=== PATIENT | male | born 1995 | race African-American/Black ===

== ENCOUNTER → 2019-02-15 | Outpatient (CLI) | payer BC ==
--- NOTE | 2019-02-15 10:24 | RADIOLOGY REPORT (SQ) ---
EXAM DESCRIPTION: SHOULDER RIGHT 2 OR MORE VIEWS COMPLETED DATE/TIME: 02/15/2019 10:14 am REASON FOR STUDY: RT ANTERIOR SHOULDER PAIN M25.511 PAIN IN RIGHT SHOULDER COMPARISON: None. NUMBER OF VIEWS: Three views. TECHNIQUE: Internal rotation, external rotation, and Y view images acquired of the right shoulder. LIMITATIONS: None. FINDINGS: MINERALIZATION: Normal. BONES: No acute fracture. No worrisome bone lesions. No significant osteophytes. GLENOHUMERAL JOINT: No significant findings. ACROMIOCLAVICULAR JOINT: No large osteophytes. SOFT TISSUES: No calcifications. VISUALIZED RIBS, SPINE, AND LUNG: No other significant finding. OTHER: No other significant finding. IMPRESSION: NEGATIVE STUDY OF THE RIGHT SHOULDER. NO EXPLANATION FOR PAIN. TECHNICAL DOCUMENTATION: JOB ID: [id number] [employer]- All Rights Reserved Reading location - IP/workstation name: [email or web address]
== END ==
LOC: OD 09:28
PROVIDERS: ATTEND Family Medicine
DX: M25.511 Pain in right shoulder (principal)

== ENCOUNTER → 2019-02-19 | Outpatient (CLI) | payer BC ==
--- NOTE | 2019-02-19 15:52 | RADIOLOGY REPORT (SQ) ---
EXAM DESCRIPTION: LUMBAR SPINE COMPLETE COMPLETED DATE/TIME: 02/19/2019 2:57 pm REASON FOR STUDY: LOW BACK PAIN M25.511 PAIN IN RIGHT SHOULDER COMPARISON: None. NUMBER OF VIEWS: Five views including obliques. TECHNIQUE: AP, lateral, oblique, and sacral radiographic images acquired of the lumbar spine. LIMITATIONS: None. FINDINGS: MINERALIZATION: Normal. SEGMENTATION: Normal. No transitional anatomy. ALIGNMENT: Normal. VERTEBRAE: Maintained height. No fracture or worrisome bone lesion. DISCS: Preserved height. No significant osteophytes or end plate irregularity. POSTERIOR ELEMENTS: Pedicles and facets are intact. No pars defect or posterior arch defects. HARDWARE: None in the spine. PARASPINAL SOFT TISSUES: Normal. PELVIS: Intact as visualized. No fractures or worrisome bone lesions. SI joints intact. OTHER: No other significant finding. IMPRESSION: NORMAL 5 VIEW LUMBAR SPINE. TECHNICAL DOCUMENTATION: JOB ID: [id number] [employer]- All Rights Reserved Reading location - IP/workstation name: [email or web address]
== END ==
LOC: OD 14:24
PROVIDERS: ATTEND Family Medicine
DX: M25.511 Pain in right shoulder (principal)
CPT/HCPCS: 72110

== ENCOUNTER 2019-11-21 10:38 | Emergency (ER) | payer BC, MEDICAID ==
--- NOTE | 2019-11-21 10:55 | ER Document Report ---
ED Medical Screen (RME) - General Chief Complaint: Chest Pain Stated Complaint: CHEST PAIN Time Seen by Provider: 11/21/19 10:46 Primary Care Provider: JOSE SZYMANSKI MD [Primary Care Provider] - Follow up as needed Mode of Arrival: Wheelchair Information source: Patient Notes: HPI; 34-year-old male no previous medical problems presents emergency room complaint of worsening intermittent chest pain for the past 2 weeks. Describes it as tightness in the substernal region. No medications or symptoms. No trauma or injury. No shortness of breath, no difficulty breathing. No recent travel. No COVID-19 exposure. PE: Alert and oriented x3. Mild stress noted. Lungs: Clear to auscultation without rales, rhonchi, wheezes. Heart: Regular rate and rhythm without murmurs, rubs, gallops. Chest wall nontender to palpation. Cardiac evaluation initiated I have greeted and performed a rapid initial assessment of this patient. A comprehensive ED assessment and evaluation of the patient, analysis of test results and completion of the medical decision making process will be conducted by additional ED providers. I have specifically instructed the patient or family members with the patient to immediately return to any nursing staff should anything change in the patient's condition or with their chief complaint. TRAVEL OUTSIDE OF THE [place] IN LAST 30 DAYS: No - Related Data Allergies/Adverse Reactions: No Known Allergies Allergy (Unverified 11/21/19 10:52) Physical Exam - Vital signs Vitals: Temp Pulse Resp BP Pulse Ox 98.5 F 64 14 130/87 H 97 11/21/19 10:48 11/21/19 10:48 11/21/19 10:48 11/21/19 10:48 11/21/19 10:48 Course - Vital Signs Vital signs: Temp Pulse Resp BP Pulse Ox 98.5 F 64 14 130/87 H 97 11/21/19 10:50 11/21/19 10:48 11/21/19 10:48 11/21/19 10:48 11/21/19 10:48 Doctor's Discharge - Discharge Referrals: JOSE SZYMANSKI MD [Primary Care Provider] - Follow up as needed
[2019-11-21 11:22] LABS: ABSOLUTE BASOPHILS # (AUTO) 0.1 10^3/uL (0.0-0.2); ABSOLUTE EOSINOPHILS # (AUTO) 0.1 10^3/uL (0.0-0.6); ABSOLUTE LYMPHOCYTES (AUTO) 2.1 10^3/uL (0.5-4.7); ABSOLUTE MONOCYTES (AUTO) 0.7 10^3/uL (0.1-1.4); ABSOLUTE NEUT (AUTO) 3.6 10^3/uL (1.7-8.2); BASOPHILS % (AUTO) 1.1 % (0-2); EOSINOPHILS % (AUTO) 1.4 % (0-6); HEMATOCRIT 42.1 % (37.9-51.0); HEMOGLOBIN 14.9 g/dL (13.5-17.0); LYMPHOCYTES % (AUTO) 31.9 % (13-45); MEAN CORPUSCULAR HEMOGLOBIN 32.5 pg (27.0-33.4); MEAN CORPUSCULAR HGB CONC 35.2 g/dL (32.0-36.0); MEAN CORPUSCULAR VOLUME 92 fl (80-97); MONOCYTES % (AUTO) 10.6 % (3-13); PLATELET COUNT 284 10^3/uL (150-450); RED BLOOD COUNT 4.57 10^6/uL (4.35-5.55); RED CELL DISTRIBUTION WIDTH 13.3 % (11.5-14.0); TOTAL CELLS COUNTED % (AUTO) 100 %; WHITE BLOOD COUNT 6.5 10^3/uL (4.0-10.5)
--- NOTE | 2019-11-21 11:31 | RADIOLOGY REPORT (SQ) ---
EXAM DESCRIPTION: CHEST SINGLE VIEW IMAGES COMPLETED DATE/TIME: 11/21/2019 11:15 am REASON FOR STUDY: chest pain COMPARISON: None. NUMBER OF VIEWS: One view. TECHNIQUE: Single frontal radiographic view of the chest acquired. LIMITATIONS: None. FINDINGS: LUNGS AND PLEURA: No opacities, masses or pneumothorax. No pleural effusion. MEDIASTINUM AND HILAR STRUCTURES: No masses. Contour normal. HEART AND VASCULAR STRUCTURES: Heart normal in size. Normal vasculature. BONES: No acute findings. HARDWARE: None in the chest. OTHER: No other significant finding. IMPRESSION: NO SIGNIFICANT RADIOGRAPHIC FINDING IN THE CHEST. TECHNICAL DOCUMENTATION: JOB ID: [id number] 2010 [employer]- All Rights Reserved Reading location - IP/workstation name: [email or web address]
[2019-11-21 11:42] LABS: ALBUMIN 4.4 g/dL (3.5-5.0); ALKALINE PHOSPHATASE 67 U/L (38-126); ANION GAP 8 (5-19); ASPARTATE AMINO TRANSFERASE 28 U/L (17-59); BILIRUBIN,TOTAL 0.6 mg/dL (0.2-1.3); BLOOD UREA NITROGEN 11 mg/dL (7-20); CALCIUM 9.5 mg/dL (8.4-10.2); CARBON DIOXIDE 24 mmol/L (22-30); CHLORIDE 106 mmol/L (98-107); CREATINE KINASE 297 U/L (55-170); GLUCOSE 89 mg/dL (75-110); POTASSIUM 4.5 mmol/L (3.6-5.0); TOTAL PROTEIN 7.9 g/dL (6.3-8.2)
[2019-11-21 11:56] LABS: TROPONIN I < 0.012 ng/mL
--- NOTE | 2019-11-21 17:52 | RADIOLOGY REPORT (SQ) ---
EXAM DESCRIPTION: CTA CHEST IMAGES COMPLETED DATE/TIME: 11/21/2019 5:42 pm REASON FOR STUDY: evaluate for PE COMPARISON: None. TECHNIQUE: CT scan of the chest performed using helical scanning technique with dynamic intravenous contrast injection. Images reviewed with lung, soft tissue and bone windows. Reconstructed coronal and sagittal MPR images reviewed. Additional 3 dimensional post-processing performed to develop Maximal Intensity Projection images (CA P). All images stored on PACS. All CT scanners at this facility use dose modulation, iterative reconstruction, and/or weight based d osing when appropriate to reduce radiation dose to as low as reasonably achievable (ALARA). [facility]: Dose Right [facility]: CareDose [facility]: Dose Right [facility]: Teradose 4D [facility]: IMN CONTRAST TYPE AND DOSE: contrast/concentration: Isovue 350.00 mg/ml; Total Contrast Delivered: 63.0 ml; Total Saline Delivered: 57.0 ml Contrast bolus adequate for pulmonary arteries and aorta. RENAL FUNCTION: BUN 11 creatinine 0.81 RADIATION DOSE: CT Rad equipment meets quality standard of care and radiation dose reduction techniq ues were employed. CTDIvol: 15.3 - 19.8 mGy. DLP: 537 mGy-cm. . LIMITATIONS: None. FINDINGS: LUNGS AND PLEURA: No masses, infiltrates, or pneumothorax. No pleural effusions or pleura l calcifications. AORTA AND GREAT VESSELS: No aneurysm. No dissection. HEART: No pericardial effusion. No significant coronary artery calcifications. PULMONARY ARTERIES: No emboli visualized in the main pulmonary arteries or the segmental branches. HILAR AND MEDIASTINAL STRUCTURES: No identified masses or abnormal nodes. HARDWARE: None in the chest. UPPER ABDOMEN: No significant findings. Limited exam. THYROID AND OTHER SOFT TISSUES: No masses. No adenopathy. BONES: No acute or significant finding. 3D MIPS: Confirm above findings. OTHER: No other significant finding. IMPRESSION: There is no pulmonary embolus. There is no aortic aneurysm or dissection. No acute fin dings in the thorax. COMMENT: Quality ID # [id number]: Final reports with documentation of one or more dose reduction techniques (e.g., Automated exposure control, adjustment of the mA and/or kV according to patient size, use of iterative reconstruction technique) TECHNICAL DOCUMENTATION: JOB ID: [id number] 2010 [employer]- All Rights Reserved Reading location - IP/workstation name: [email or web address]
[2019-11-21] MEDS ORDERED: KETOROLAC TROMETHAMINE INJ/PF 30 MG/1 ML SDV IV ONE (18:13)
[2019-11-21 19:10] VITALS: BP 146/92
--- NOTE | 2019-11-21 19:53 | ER Document Report ---
Entered by JOSE WREN SCRIBE 11/21/19 1313 Acting as scribe for:JESSICA GONZALEZ DO ED General - General Chief Complaint: Chest Pain Stated Complaint: CHEST PAIN Time Seen by Provider: 11/21/19 10:46 Primary Care Provider: JOSE SZYMANSKI MD [Primary Care Provider] - Follow up in 3-5 days Mode of Arrival: Wheelchair Information source: Patient Notes: This 24 year old male patient presents to the emergency department today with complaints of chest pain off and on for the last two weeks. Patient states his pain is exacerbated with deep breathing. Patient denies leg swelling, history of DVT/PE, cough, or fevers. 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 TRAVEL OUTSIDE OF THE [place] IN LAST 30 DAYS: No - Related Data Allergies/Adverse Reactions: No Known Allergies Allergy (Unverified 11/21/19 10:52) Past Medical History - General Information source: Patient - Social History Smoking Status: Current Some Day Smoker Cigarette use (# per day): Yes Frequency of alcohol use: None Drug Abuse: None Lives with: Family Family History: Reviewed & Not Pertinent Patient has homicidal ideation: No - Medical History Medical History: Negative Surgical Hx: Negative Review of Systems - Review of Systems Constitutional: denies: Fever EENT: No symptoms reported Cardiovascular: See HPI, Chest pain Respiratory: See HPI, Hurts to breathe. denies: Cough Gastrointestinal: No symptoms reported Genitourinary: No symptoms reported Male Genitourinary: No symptoms reported Musculoskeletal: denies: Leg swelling Skin: No symptoms reported Hematologic/Lymphatic: No symptoms reported Neurological/Psychological: No symptoms reported -: Yes All other systems reviewed and negative Physical Exam - Vital signs Vitals: Temp Pulse Resp BP Pulse Ox 98.5 F 64 14 130/87 H 97 11/21/19 10:48 11/21/19 10:48 11/21/19 10:48 11/21/19 10:48 11/21/19 10:48 Interpretation: Normal - General General appearance: Appears well, Alert - HEENT Head: Normocephalic, Atraumatic Eyes: Normal Pupils: PERRL - Respiratory Respiratory status: No respiratory distress Chest status: Tender Breath sounds: Normal Chest palpation: Normal - Cardiovascular Rhythm: Regular Heart sounds: Normal auscultation Murmur: No - Abdominal Inspection: Normal Distension: No distension Bowel sounds: Normal Tenderness: Nontender Organomegaly: No organomegaly - Back Back: Normal, Nontender - Extremities General upper extremity: Normal inspection, Nontender, Normal color, Normal ROM, Normal temperature General lower extremity: Normal inspection, Nontender, Normal color, Normal ROM, Normal temperature, Normal weight bearing. No: Geoff's sign - Neurological Neuro grossly intact: Yes Cognition: Normal Orientation: AAOx4 Rolla Coma Scale Eye Opening: Spontaneous Fransico Coma Scale Verbal: Oriented Fransico Coma Scale Motor: Obeys Commands Fransico Coma Scale Total: 15 Speech: Normal Motor strength normal: LUE, RUE, LLE, RLE Sensory: Normal - Psychological Associated symptoms: Normal affect, Normal mood - Skin Skin Temperature: Warm Skin Moisture: Dry Skin Color: Normal Course - Vital Signs Vital signs: Temp Pulse Resp BP Pulse Ox 98.0 F 64 16 146/92 H 98 11/21/19 18:59 11/21/19 10:48 11/21/19 18:59 11/21/19 18:59 11/21/19 18:59 11/21/19 1800 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 Troponin negative x2. No acute finding on EKG. CTA with no evidence for acute findings, particularly pulmonary embolus. Patient will be discharged home and instructed to take [id number] medications as needed for pain. Understands and agrees with plan. Stable for discharge. Return for any worsening or concerning symptoms. - Laboratory Result Diagrams: 11/21/19 11:04 11/21/19 11:04 Laboratory results interpreted by me: 11/21/19 11:04 Creatine Kinase 297 H - Diagnostic Test Radiology reviewed: Reports reviewed - EKG Interpretation by Me EKG shows normal: Sinus rhythm Rate: Normal Rhythm: NSR When compared to previous EKG there are: No significant change Discharge - Discharge Clinical Impression: Chest wall pain Condition: Stable Disposition: HOME, SELF-CARE Instructions: Chest Wall Pain ([facility]) Forms: Return to Work Referrals: JOSE SZYMANSKI MD [Primary Care Provider] - Follow up in 3-5 days I personally performed the services described in the documentation, reviewed and edited the documentation which was dictated to the scribe in my presence, and it accurately records my words and actions.
--- NOTE | 2019-11-22 12:45 | EKG REPORT ---
SEVERITY:- NORMAL ECG - SINUS RHYTHM : Confirmed by: Jemima Elena 22-Nov-2019 12:44:41
== END 2019-11-21 19:10 | disposition home or self-care (01) ==
LOC: ER 10:38
DX: R07.89 Other chest pain (principal); R06.00 Dyspnea, unspecified; F17.210 Nicotine dependence, cigarettes, uncomplicated
CPT/HCPCS: 93005; 99284; 96374; 36415; 82553; 82550; 85025; 80053; 84484; 85379; 71045; 71275; 93010; J1885